=== PATIENT | female | born 2000 | race African-American/Black ===

== ENCOUNTER 2024-03-18 13:52 | Emergency (ER) | payer SELFPAY ==
[~2024-03-18] VITALS: Ht 170.2 cm; Wt 105.0 kg
[2024-03-18] MEDS ORDERED: LAMO100T65 PO (14:03)
[2024-03-18] MEDS ORDERED: ASPI-986 MT (14:03)
[2024-03-18 14:10] VITALS: O2SAT 99
[2024-03-18 14:36] LABS: CHLORIDE 108 mEq/L (98-107); POTASSIUM 3.8 mEq/L (3.5-5.1); SODIUM 138 mEq/L (136-145)
[2024-03-18 14:37] LABS: CALCIUM 8.8 mg/dL (8.7-10.4); CARBON DIOXIDE 23 mEq/L (21-32)
[2024-03-18 14:38] LABS: HEMATOCRIT 37.4 % (36.0-48.0); HEMOGLOBIN 12.8 g/dL (12.0-16.0); MEAN CORPUSCULAR HEMOGLOBIN 32.3 pg (28.0-32.0); MEAN CORPUSCULAR HGB CONC 34.3 g/dL (31.0-37.0); MEAN CORPUSCULAR VOLUME 94.2 fL (81.0-99.0); PLATELET 192 x1000/uL (130-400); RED BLOOD CELL COUNT 3.97 mill/uL (4.2-5.4); RED CELL DISTRIBUTION WIDTH 13.4 % (11.6-14.6); WHITE BLOOD COUNT 7.4 x1000/uL (4.5-11.0)
[2024-03-18 14:42] LABS: CREATININE 0.6 mg/dL (0.6-1.0); GLUCOSE 96 mg/dL (70-105); UREA NITROGEN BLOOD 6 mg/dL (9-23)
[2024-03-18 17:26] VITALS: BP 96/69; PULSE 75; RESP 16; TEMP 36.7; O2SAT 99
== END 2024-03-18 17:35 | disposition short-term general hospital (02) ==
LOC: ER 13:52
DX: O99.512 Diseases of the respiratory system complicating pregnancy, second trimester (principal); J45.909 Unspecified asthma, uncomplicated; Z3A.21 21 weeks gestation of pregnancy
CPT/HCPCS: 36415; 76815; 80048; 85027; 86850; 86900; 99285